=== PATIENT | female | born 1975 | race Caucasian/White ===

== ENCOUNTER → 2017-02-15 | Outpatient (CLI) | payer OTHER | LOC: KOH-I 14:01 | DX: M54.9 Dorsalgia, unspecified (principal) | CPT/HCPCS: 72070; 72110 ==

== ENCOUNTER 2021-01-27 10:42 | Emergency (ER) | payer OTHER ==
[~2021-01-27 10:42] MED LIST: FLEXERIL 10 MG10 MG PO
== END 2021-01-27 12:18 | disposition home or self-care (01) ==
LOC: ER1 10:42
DX: S70.11XA Contusion of right thigh, initial encounter (principal); F17.210 Nicotine dependence, cigarettes, uncomplicated; Z23 Encounter for immunization; W34.00XA Accidental discharge from unspecified firearms or gun, initial encounter; Y92.009 Unspecified place in unspecified non-institutional (private) residence as the place of occurrence of the external cause
CPT/HCPCS: 73552; 90471; 90714; 99283